=== PATIENT | male | born 1975 | race Caucasian/White ===

== ENCOUNTER 2017-01-17 05:51 | Emergency (ER) | payer MEDICARE, MEDICAID ==
[~2017-01-17] VITALS: Ht 182.9 cm; Wt 125.2 kg
--- NOTE | 2017-01-17 06:01 | Emergency Room Report ---
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 N Clinical Suspician of Infection? N Mental Status: 1 - Regular (Normal Baseline) Sepsis Risk:Possible Sepsis Risk Have you (or family members/close friends) recently traveled outside the [place]? N If Yes, where/when: Have you had exposure to infectious disease within the past month? N TB? Other? Specify: Source patient, RN notes reviewed, EMS, old records Exam Limitations no limitations Comment pt with hx of esrd on dialysis which is today but pt woke up this am with sob w/ o chest pain- he denied any prev chf -pt has been on dialysis for 10 yrs and is not a diabetic pt - no fever or cough Cardiac Chest Pain Chest pain indicative of cardiac No Timing/Duration this morning Severity moderate ALLERGIES Coded Allergies: No Known Allergies (01/17/17) History Medical History General CAD? No Angina: No [place]: No Hypertension? Yes Hyperlipidemia? No CHF? No DVT? No PE? No COPD? No Asthma? No Anemia? No GERD? No Gastric ulcers? No GI Bleed? No Hernia? No Thyroid Problems? No Hypothyroidism? No CVA? No Seizures? No Diabetes? No Renal Insuffiency? Yes End Stage Renal Disease? Yes UTI? No Stones? No BPH? No GB Disease: No Nephritic Syndrome? No Asplenia? No Hepatitis? No Sickle Cell Disease? No Arthritis? No Migraines? No Cataracts? No Glaucoma? No MRSA? No HIV? No TB? No Anxiety? No Depression? No Cancer? No More? No Immunization Hx Ped.Immunizations UTD No DT/Tetanus 1-4 Years Ago Surgical Hx Previous Surgery?N Social History Smoking Hx Smoker: Never Smoker Tobacco: No Are you/the child exposed to second-hand smoke: No Alcohol Alcohol: No Drugs none Review of Systems All Other Systems Reviewed and Negative Constitutional see HPI, denies fever, other Eyes denies drainage ENT denies: ear pain, epistaxis, throat pain. Respiratory see HPI, denies cough, shortness of breath, denies wheezing Cardiovascular denies chest pain, denies palpitations Gastrointestinal denies abdominal pain, denies diarrhea, denies vomiting Genitourinary denies: dysuria, frequency, hesitancy, hematuria. Musculoskeletal denies back pain, denies joint pain, denies joint swelling, denies neck pain Skin denies rash Psychiatric/Neurological denies headache, denies seizure Physical Exam Vital Signs Vital Signs Date Time Temp Pulse Resp B/P Pulse O2 O2 Flow FiO2 Ox Delivery Rate 01/17 727 99.1 98 20 141/87 97 2 01/17 0726 89 24 141/87 95 2 01/17 0659 91 24 156/79 95 2 01/17 0553 98.2 91 24 150/88 95 2 - WBC >12,000 or <4,000 or 10% bands? 2 or more SIRS Criteria Met? B/P:141/87 MAP:108 Creatinine >2.0? UA output<0.5ml/kg/hr for 2 hrs? Platelet count >100,000? Lactate >2.0mmol/1? INR >1.2 or PTT > than 60 sec? Evidence of Organ Dysfunction? Provider documented clinical suspician of infection? N Sepsis Criteria Count: 2 Sepsis Risk: Possible Sepsis Risk General Appearance no apparent distress Eye Exam - bilateral eye PERRL, bilateral eye EOMI Ear, Nose, Throat normal ENT inspection Neck non-tender Respiratory Status No: respiratory distress. Lung Sounds bilateral: decreased breath sounds, crackles. 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 No Results/Orders Laboratory Tests 01/17/17 0645: B-Natriuretic Peptide 1270 H 01/17/17 0625: Sodium 137, Potassium 5.2 H, Chloride 99, Carbon Dioxide 23, BUN 77 H, Creatinine 9.3 H, Estimated Creat Clear 19 L, Estimated GFR (MDRD) 6, Glucose 116 H, Calcium 9.2, Total Bilirubin 0.5, AST 37, ALT 16, Alkaline Phosphatase 596 H, Creatine Kinase 121, CK-MB (CK-2) Rel Index 0.6, CK and CKMB Interp 0.7, Troponin I < 0.02, Total Protein 6.9, Albumin 2.8 L, Globulin 4.1 H, Albumin/ Globulin Ratio 0.7 L, WBC 7.9, RBC 2.77 L, Hgb 9.0 L, Hct 27.8 L, MCV 100.4 H, RDW 16.9, Plt Count 160, MPV 6.1 L, Gran % 78.8, Gran # 6.2, Lymphocytes % 14.5, Monocytes % 3.1, Eosinophils % 3.2, Basophils % 0.3, Lymphocytes # 1.2, Monocytes # 0.2, Eosinophils # 0.3, Basophils # 0.0, PUBS MCHC 32.4, MCH 32.5 H Current Medication Orders Sig/Carmen Start time Last Medication Dose Route Stop Time Status Admin Furosemide 0 .STK-MED ONE 01/17 717 DC .ROUTE Nitroglycerin 0 .STK-MED ONE 01/17 717 DC .ROUTE Furosemide 80 MG ONCE ONE 01/17 700 DC 01/17 IV 01/17 701 07 Nitroglycerin 1 IN ONCE ONE 01/17 700 DC 01/17 TP 01/17 701 07 Sodium Chloride 10 ML PRN PRN 01/17 615 AC IV 01/18 602 Orders Procedure Date/time Status BRAIN NATRIURETIC PEPTIDE 01/18 716 Complete ELECTROCARDIOGRAM REQUEST 01/17 602 Active IV SALINE LOCK 01/17 602 Active COMPLETE METABOLIC PANEL 01/17 602 Complete CBC WITH AUTO DIFF 01/17 602 Complete CARDIAC ENZYMES 01/17 602 Complete 12 LEAD EKG-JAYDEN (INITIAL) 01/17 600 Active CM/EKG 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 of ischemic chgs XRAY/CT/US XRAY/CT/US XRAY chest XR interpretation by reviewed by me Xray Results abnormal (chf) Departure Departure Time of Disposition 0751 Disposition DC/XFER from ER to [facility] Clinical Impression Primary Impression: CHF (congestive heart failure) Qualifiers: Congestive heart failure type: unspecified congestive heart failure type Congestive heart failure chronicity: acute Qualified Code: I50.9 - Heart failure, unspecified Secondary Impressions: ESRD (end stage renal disease) on dialysis Condition STABLE Additional Instructions discussed with ed for transfer ED Critical Care Critical Care Yes Time spent 30-74 min Vital system(s) involved: Renal Failure I was present at bedside for Coordinating pt's care, Interpreting EKGs/Strips , Reviewing lab results, Reviewing old records, Discussing pt condition, For re- examinations, Examining radiographs at 2493
[2017-01-17 06:38] LABS: LYMPH # 1.2 K/mm3 (0.7-4.5); LYMPH % 14.5 % (10-50)
[2017-01-17 07:09] LABS: BUN 77 mg/dL (7-18); GFR (ESTIMATED) 6 ML/MIN (>60)
--- NOTE | 2017-01-17 07:27 | RADIOLOGY REPORT PS360 ---
CHEST-PORTABLE HISTORY: Extreme shortness of breath sob ORDERING PHYSICIAN: Porsha Chaidez MD PATIENT AGE: 41 years COMPARISON: None available FINDINGS: There is diffuse bilateral alveolar opacification along with cardiomegaly and pulmonary venous congestion. This radiographically is more consistent with CHF with pulmonary edema. Acute cardiac compensation is a consideration. Diffuse pneumonia is also considered. IMPRESSION: Diffuse bilateral alveolar disease with cardiomegaly suggesting CHF with pulmonary edema versus diffuse pneumonia
[2017-01-17 08:30] VITALS: BP 143/86
== END 2017-01-17 08:48 | disposition short-term general hospital (02) ==
LOC: ER 05:51
PROVIDERS: Emergency Medicine
DX: I50.9 Heart failure, unspecified (principal); I10 Essential (primary) hypertension; N18.6 End stage renal disease; Z99.2 Dependence on renal dialysis

== ENCOUNTER 2017-10-16 09:18 | Emergency (ER) | payer MEDICARE, MEDICAID ==
[~2017-10-16] VITALS: Ht 182.9 cm; Wt 136.1 kg
[2017-10-16 09:48] LABS: URINE BILIRUBIN - DIPSTICK NEGATIVE (NEG); URINE BLOOD 3+ (NEG)
[2017-10-16 10:14] LABS: LYMPH # 4.2 K/mm3 (0.7-4.5); LYMPH % 32.5 % (10-50)
[2017-10-16 10:19] LABS: HEMOGLOBIN 10.3 g/dL (14.1-18.0)
[2017-10-16 10:24] LABS: ARTERIAL ABE -8.7 MMOL/L (-2.4-+2.3); ARTERIAL PO2 136.2 MMHG (80-100); ARTERIAL TCO2 22.2 MMOL/L (23-27); OXYGEN 100; VENT RATE 20
[2017-10-16 10:27] LABS: URINE SQUAMOUS CELLS OCC #/hpf (OCC)
[2017-10-16 10:34] LABS: BUN 70 mg/dL (7-18)
--- OUTSIDE RECORDS SUMMARY | 2017-10-16 10:36 | External Medical Summary Rpt | CCD ---
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 [facility], [facility] 2 2 [facility], [facility] 2 2 [facility], [facility] 2 2 [facility], [facility] 2 2 [facility], [facility] 2 2 [facility], [facility] 2 2 [facility], [facility] 1 1 [facility] 1 1 [facility] 1 1 [facility], [facility] 1 1 [facility] 1 1 [facility] 1 1 [facility], [facility] 1 1 [facility] 1 1 [facility] 1 1 [facility] 1 1 [facility] 1 1 [facility] 1 1 [facility] 0 0 [facility] 0 0 [facility], [facility] 0 0 [facility] 0 0 [facility] 0 0 [facility], [facility] 0 0 [facility] 0 0 [facility] 0 0 [facility] 0 0 [facility] - 0 0 [facility], [facility] 0 0 [facility], [facility] 0 0 [facility], [facility] 0 0 N [facility], [facility] 9 9 N [facility], [facility] 9 9 N [facility], [facility] 9 9 N [facility], [facility] 9 9 N [facility], [facility] 9 9 N [facility], [facility] 9 9 N [facility], [facility] 9 9 N [facility], [facility] 9 9 N [facility] CL[facility], [facility] 9 9 N [facility] 9 9 N [facility] [address] CLINIC, [facility] 9 9 N [facility] [address] [facility] 9 9 [facility] CLINIC[facility] 9 9 N [facility] 8 8 [facility], [facility] 8 8 N [facility], [facility] 8 8 [facility] 8 8 N [facility], [facility] 8 8 [facility] 8 8 [facility] 8 8 N [facility] [address] CLINIC, [place] [id number] 8 N [facility], [place] [address] 8 N [facility], [place] [address] 8 N [facility] [address] CLINIC, [place] [address] 8 N [facility], [place] [address] 8 N [facility] [address] CLINIC, [place] [address] 8 N [facility] [address] CLINIC, [place] [address] 8 N [facility], [place] [address] 8 N [facility]
--- OUTSIDE RECORDS SUMMARY | 2017-10-16 10:36 | External Medical Summary Rpt | CCD ---
Author Author , NANNETTE Organization NANNETTE Address Unknown Phone [email or web address] Care Team Providers Care Turning Sander Operator Name Role Phone MELISSA DEANDRE, MELISSA Unavailable Unavailable Meeta BERNSTEIN, Unavailable Unavailable Meeta MIRANDA [facility] Unavailable Unavailable [facility], [facility] Unavailable Unavailable HOSPITAL, [facility] Unavailable Unavailable DIALYSIS, [facility] Unavailable Unavailable [facility] [place], [facility] [place] [facility], Unavailable Unavailable [facility], [facility] Unavailable Unavailable [id number], Unavailable Unavailable [id number]available Unavailable SERVICES, [facility] Unavailable Unavailable SERVICES, [facility] Unavailable Unavailable TRANSPORTATION SER, [facility] Unavailable Unavailable HOSPITAL, [facility] Unavailable Unavailable HOSPITA, [facility] Unavailable Unavailable CLINIC, [facility] SONDRA ODONNELL, Unavailable Unavailable SONDRA ODONNELL [facility] Unavailable Unavailable AIDS, [facility] Unavailable Un[facility], [facility] Unavailable Unavailable [facility], [facility] Unavailable Unavailable MEDICAL G, [facility] MED[facility] G [facility], Unavailable Unavailable [facility] Unavailable Un[facility], [facility] Unavailable Unavailable [facility], [facility], Unavailable Unavailable PLLC, [facility], [facility] LELO ZAVALA, LUCAS, Unavailable Unavailable [facility] Unavailable [facility], [facility], SCIFRES Unavailable Unavailable ANG [facility] Unavailable Unavailable E[facility]IP[facility], [facility], [facility] Unavailable Unavailable [facility]GENC[facility] SERV[facility], [facility], [facility]available [facility]available [facility], Unavailable Unavailable [facility] Unavailable Unavailable [facility], [facility]available Unavailable [facility] SWINEY PAT, SWINEY Unavailable Unavailable PAT [facility], Unavailable Unavailable [facility] Unavailable Unavailable ASSOCIATES, [facility] Unavailable Un[facility] [place] [facility], [facility] Unavailable Unavailable #493, [facility] # Unavailable Unavailable [id number], [facility] # [id number] [facility], Unavailable Unavailable [facility], Unavailable Unavailable [facility] Purpose Continuity of Care Document - 11-14-2007 through 2016 Problems Code Diagnosis DOS Provider Status R69 ILLNESS 07-13-2017 [facility] UNSPECIFIED TRANSPORTAT ION SER D509 IRON 06-15-2017 [facility] ANEMIA DIALYSIS UNSPECIFIED D631 ANEMIA IN 06-15-2017 [facility] DISEASE N186 END STAGE 06-15-2017 [facility] DISEASE DIALYSIS 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 HOSPI E875 HYPERKALEMI 01-18-2017 [facility] E8770 FLUID 01-18-2017 [facility] OVERLOAD [facility] UNSPECIFIED HOSPI I10 ESSENTIAL 01-18-2017 [facility] HYPERTENSIO FOUNDATION N I120 HYPERTENSIV 01-18-2017 [facility] E CKD [facility] W/STAGE 5 HOSPI CKD OR ESRD I348 OTHER 01-18-2017 [facility] NONRHEUMATI SERV C MITRAL [facility]OUNDATION VALVE DISORDERS I358 OTHER 01-18-2017 [facility] NONRHEUMATI SERV C AORTIC FOUNDATION VALVE DISORDERS I517 CARDIOMEGAL 01-18-2017 [facility] Y SERV [facility] J811 CHRONIC 01-18-2017 [facility] PULMONARY SERV EDEMA FOUNDATION N250 RENAL 01-18-2017 [facility] R0689 OTHER 01-18-2017 [facility] ES OF HOSPI BREATHING J81.1 Chronic 01-17-2017 pulmonary edema I110 HYPERTENSIV 01-17-2017 [facility], DISEASE PLLC WITH HEART FAILURE I509 HEART 01-17-2017 [facility] FAILURE PHYSICIANS, UNSPECIFIED PLLC J810 ACUTE 01-17-2017 [facility] PULMONARY SERV EDEMA [facility]OUND[facility] R0602 SHORTNESS 01-17-2017 [facility] MEDICAL IMAGING ASS R918 OTHER 01-17-2017 [facility] NONSPECIFIC SERV ABNORMAL FOUNDATION FINDING OF LUNG FIELD B954 OTHER 01-12-2017 HEATH STREPTOCOCC [facility] US CAUSE OF DIALYSIS DZ CLASSIFIED ELSW B9689 OTH SPEC 01-12-2017 HEATH BACTERIAL [facility] AGNT CAUSE DIALYSIS DZ CLASSIFIED ELSW G56803 CELLULITIS 01-12-2017 [facility] UMBILICUS DIALYSIS Z5181 ENCOUNTER 12-15-2016 [facility] THERAPEUTIC DIALYSIS DRUG LEVEL MONITORING R1905 PERIUMBILIC 12-11-2016 [facility] RENAL CARE MASS OR PSC LUMP L0291 CUTANEOUS 12-10-2016 [place] [facility] INPATIENT UNSPECIFIED MEDICINE B07793 CELLULITIS 12-10-2016 [facility] ABDOMINAL MEDICINE WALL A419 SEPSIS 12-09-2016 [facility] ORGANISM D696 THROMBOCYTO 12-09-2016 [facility] UNSPECIFIED E785 HYPERLIPIDE 12-09-2016 [facility] UNSPECIFIED E871 HYPO-OSMOLA 12-09-2016 [facility] HYPONATRE[facility] A R509 FEVER 12-09-2016 [facility] U[facility]PEC[facility] N EMERGENCY SERVI [id number] STENOSIS 12-09-2016 [facility] [place] VASC PROSTH RADIOLOGY DEVC IMPL & GRAFT INIT ENC D649 ANEMIA 12-02-2016 [facility] UNSPECIFIED FAMILY PHYSICIANS [facility] E213 HYPERPARATH 12-02-2016 [facility] YROIDISM FAMILY UNSPECIFIED PHYSICIANS [facility] M6281 MUSCLE 12-02-2016 [facility] WEAKNESS FAMILY GENERALIZED PHYSICIANS [facility] W63408 PAIN IN 12-02-2016 [facility] RIGHT LEG FAMILY PHYSICIANS [facility] A29151 PAIN IN 12-02-2016 [facility] LEFT LEG FAMILY PHYSICIANS [facility] [id number] PAIN D/T 11-23-2016 [facility] PROS [facility] IMPL & GRAFTS SEQUELA L299 PRURITUS 11-17-2016 [place] UNSPECIFIED [facility] DIALYSIS L989 DISORDER 11-17-2016 [place] THE SKIN & [facility] D[facility] S TISSUE UNS Z452 ENCOUNTER 10-05-2016 [facility] [place] ADJUSTMENT& RADIOLOGY MGMT VASCULAR ACCESS DEVICE G2581 RESTLESS 10-04-2016 [facility] LEGS [facility] SYNDROME M1990 UNSPECIFIED 10-04-2016 [facility] OSTEOARTHRI TIS UNSPECIFIED SITE N65264M THROMBOSIS 10-04-2016 [facility] D[facility] DEVC IMPL & GFT INITIAL H90936S THROMBOSIS 10-04-2016 [facility] [place] D/T OTH RADIOLOGY INTRL PRS DVC IMPL & GRFT INT E119 TYPE 2 09-09-2016 [facility] DIABETES [facility] MELLITUS WITHOUT COMPLICATIO NS K219 GASTRO-ESOP 09-09-2016 [facility] REFLUX [facility] DISEASE WITHOUT ESOPHAGITIS J0190 ACUTE 07-19-2016 [facility] SINUSITIS FAMILY UNSPECIFIED PHYSICIANS [facility] Z23 ENCOUNTER 07-16-2016 [place] FOR COUNTY IMMUNIZATIO DIALYSIS N Z4802 ENCOUNTER 06-20-2016 [facility] FOR REMOVAL FAMILY OF SUTURES PHYSICIANS [facility] H1033 UNSPECIFIED 06-13-2016 [facility] ACUTE FAMILY CONJUNCTIVI PHYSICIANS TIS [facility] BILATERAL C45230 PAIN IN 05-20-2016 [facility] RIGHT KNEE FAMILY PHYSICIANS [facility] H94831 PAIN IN 05-20-2016 [facility] LEFT KNEE FAMILY PHYSICIANS [facility] N529 MALE 05-20-2016 [facility]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 DYSFUNCTION PHYSICIANS [facility] UNSPECIFIED R262 DIFFICULTY 05-20-2016 [facility] IN WALKING FAMILY NOT PHYSICIANS ELSEWHERE [facility] CLASSIFIED 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 UNSPECIFIED K90953 PAIN IN 04-14-2016 [place] LEFT FAMILY SHOULDER PHYSICIANS [facility] U29547P OTH SPEC 04-14-2016 [facility] IMPL GFT INIT ENC H4954DG HEMORRHAGE 04-14-2016 [facility] D/T PROS N EMERGENCY DEV IMPL PHYS & GFT INITIAL B379 CANDIDIASIS 04-06-2016 [facility] UNSPECIFIED PHYSICIANS [facility] R55 SYNCOPE AND 04-06-2016 [facility] COLLAPSE FAMILY PHYSICIANS [facility] 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 POLYCYSTIC 01-27-2016 [facility] 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 ADULT TYPE PHYSICIANS [facility] I41065 PAIN IN 11-20-2015 [facility] UNSPECIFIED HOME LIMB MEDICAL EQUIPME R2689 OTHER 11-20-2015 [facility] ABNORMALITI HOME ES OF GAIT MEDICAL AND EQUIPME MOBILITY 91404 08-11-2015 [facility] TRAN[facility]ORT[facility] ION SER 5856 END STAGE 08-10-2015 [facility] RENAL RENAL CARE DISEASE PSC 2809 UNSPECIFIED 07-16-2015 HEATH IRON [facility] DEFICIENCY DIALYSIS ANEMIA 81731 ANEMIA IN 07-16-2015 [facility] KIDNEY DIALYSIS DISEASE 77741 SECONDARY 07-16-2015 HEATH HYPERPARATH [facility] YROIDISM DIALYSIS V0481 NEED 07-16-2015 HEATH PROPHYLACTI [facility] C DIALYSIS VACCINATION &INOCULATIO N FLU V4511 RENAL 07-16-2015 [facility] STATUS DIALYSIS 21155 PAIN IN 07-08-2015 [facility] [place] JOINT, RADIOLOGY LOWER LEG V700 ROUTINE 07-08-2015 [facility] EXAM@HEALTH CARE FACL 2767 HYPERPOTASS 03-26-2015 [facility]IA RENAL CARE PSC 4011 ESSENTIAL 03-26-2015 [facility] HYPERT[facility]SIO RENAL CARE N, BENIGN PSC 5854 CHRONIC 03-26-2015 [facility] DISEASE STAGE IV (SEVERE) 10911 FEVER 03-26-2015 [facility] UNSPECIFIED MEDICS 34062 SHORTNESS 03-26-2015 [facility] OF BREATH MEDICS 66309 ABDOMINAL/P 03-26-2015 [facility] SWELLING MASS/LUMP UNSPEC SITE 7907 BACTEREMIA 03-26-2015 [facility] RENAL CARE PSC 48460 HTN CKD 03-25-2015 [facility] UNSPEC COMMUNTIY W/CKD STAGE HOSPITA V/ESRD 5839 NEPHRITIS&N 03-25-2015 [facility] EPHRPATH COMMUNTIY NOT AC/CHRN HOSPITA W/UNS PATHAL LES 5880 RENAL 03-25-2015 [facility] OSTEODYSTRO COMMUNTIY PHY HOSPITA 16293 OTHER 03-25-2015 [facility] [place] NONSPECIFIC RADIOLOGY ABNORMAL FINDING OF LUNG FIELD 22488 BLOODSTREAM 03-25-2015 [facility] INFECT D/T COMMUNTIY [facility] VENOUS CATHETER V8541 BODY MASS 03-25-2015 [facility] INDEX COMMUNTIY 40.0-44.9 HOSPITA ADULT 79488 OTHER 03-14-2015 [facility] STAPHYLOCOC [facility] CUS DIALYSIS INFECTION IN CCE & UNS SITE 71443 OTH COMPS 02-12-2015 [place] DUE RENAL [facility] DIALYSIS DIALYSIS DEVICE IMPLANT&GFT V5883 ENCOUNTER 02-12-2015 [place] FOR [facility] THERAPEUTIC DIALYSIS DRUG MONITORING V7283 OTHER 01-26-2015 [facility] SPECIFIED COMMUNTIY PRE-OPERATI HOSPITA VE EXAMINATION 99401 OTHER FLUID 11-14-2014 [facility] OVERLOAD MEDICS V5881 FITTING AND 11-14-2014 [facility] [place] ADJUSTMENT RADIOLOGY OF VASCULAR CATHETER 2720 PURE 08-31-2014 HEATH HYPERCHOLES [facility] 4019 UNSPECIFIED 08-31-2014 HEATH ESSENTIAL [facility] 6822 CELLULITIS 08-31-2014 [facility] V5869 LONG-TERM 08-31-2014 HEATH (CURRENT) [facility] USE OF HOSPITAL OTHER MEDICATIONS 5859 CHRONIC 07-17-2014 [facility] [place] KIDNEY RADIOLOGY DISEASE UNSPECIFIED 8830 OPEN WOUND 03-02-2014 [facility] PAT FINGER WITHOUT MENTION COMPLICATIO N E9208 ACC CAUSED 03-02-2014 [facility] PAT OTH SPEC CUT&PIERCIN G INSTRUM/OBJ S 37096 MORBID 12-04-2013 [facility] 06582 PHLEBITIS&T 12-04-2013 [facility] SUP VEINS UPPER EXTREM 79497 ESOPHAGEAL 12-04-2013 [facility] REFLUX [facility] 7822 LOCALIZED 12-04-2013 [facility] MED[facility] G MASS OR LUMP V8542 BODY MASS 12-04-2013 [facility] 45.0-49.9 ADULT 586 UNSPECIFIED 11-14-2013 MELISSA DEANDRE RENAL FAILURE 9961 MECH COMP 07-27-2013 [facility] VASCULAR DEVICE IMPLANT&GRA FT 2753 DISORDERS 07-16-2013 [facility] PHOSPHORUS DIALYSIS METABOLISM 38068 HYPERCALCEM 05-14-2013 [facility] DIALYSIS 4470 ARTERIOVENO 06-18-2012 [facility] US FISTULA, HOSPITAL ACQUIRED 4539 EMBOLISM 06-18-2012 [facility] THROMBOSIS OF UNSPECIFIED SITE V720 EXAMINATION 12-27-2011 [facility] OF EYES AND VISION 27620 OTHER 07-16-2011 [facility] DIALYS[facility] METABOLISM V053 NEED PROPH 07-16-2011 HEATH VACC&INOCUL [facility] AT AGAINST DIALYSIS VIRAL HEP 2724 OTHER AND 04-28-2011 [facility] UNSPECIFIED LABORATORY SERVICES HYPERLIPIDE AMENA 4149 UNSPECIFIED 04-28-2011 [facility] CHRONIC LABORATORY ISCHEMIC SERVICES HEART DISEASE V0382 NEED PROPH 10-15-2010 HEATH VACCINATION [facility] AGAINST DIALYSIS STREP PNEUMONE 43452 ANEMIA OF 02-01-2010 [facility] OTHER LABORATORY CHRONIC SERVICES DISEASE 71945 HTN CKD UNS 02-01-2010 [facility] W/CKD [facility] STAGE I THRU STAGE IV/UNS V741 SCREENING 12-16-2009 [facility] EXAMINATION DIALYSIS FOR CLINIC PULMONARY TUBERCULOSI S 0389 UNSPECIFIED 12-04-2008 [facility]OSPITAL 10354 SEPSIS 12-04-2008 [facility] 53198 INF&INFLAM 12-04-2008 [facility] [place] REACT DUE RADIOLOGY OT VASC DEVICE IMPLANT&GFT 6869 UNSPEC 12-01-2008 [facility] INFECTION ERVICAviary SKIN&SUBCUT ANEOUS TISSUE 27192 OTHER 12-01-2008 [facility] SYMPTOMS [employer] 87625 URINARY 11-19-2008 [facility] 2811 OTHER 09-29-2008 [facility] VITAMIN B12 LABORATORYS DEFICIENCY [employer] ANEMIA 2812 FOLATE-DEFI 09-29-2008 [facility]IA [facility] 5733 UNSPECIFIED 08-27-2008 [employer] [facility] HEPATITIS [facility] 4619 ACUTE 07-15-2008 [facility] SINUSITIS, MEDICAL UNSPECIFIED CLINIC 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 V561 FITTING&ADJ 05-13-2008 [facility] EXTRACORPOR CLINIC EAL DIALYSIS CATHETER 7840 HEADACHE 04-04-2008 [facility] [place] RADIOLOG[facility] 21846 DEGEN 03-18-2008 [facility] [place] LUMBAR/LUMB RADIOLOGY OSACRAL INTERVERTEB RAL DISC 7242 LUMBAGO 03-18-2008 [facility] 7245 UNSPECIFIED 03-18-2008 [facility] 08759 GOUTY 01-12-2008 [facility] NEPHROPATHY DIALYSIS , CLINIC UNSPECIFIED 2749 GOUT, 01-10-2008 [facility] UNSPECIFIED HOSPITAL V451 RENAL 01-10-2008 [facility] DIALYSIS HOSPITAL STATUS V7284 UNSPECIFIED 01-10-2008 [facility] PRE-OPERATI OF VE [place] EXAMINATION V854 BODY MASS 01-10-2008 [facility] INDEX 40 HOSPITAL AND OVER ADULT 82224 CHR 12-20-2007 LELO ZAVALA GLOMERULONE PHRITIS W/PATH KIDNEY LES DZ CE [...] Bacteria XXX Anaerobe+Aerobe Cult (01-17-2017 18:49) Bacteri 1208832 complet a XXX 017 06 No ed Anaerob 18:49 growth e+Aerob (qualif e Cult ier value) SCT NGB6 NO GROWTH DAY 5. L Bacteria XXX Anaerobe+Aerobe Cult (01-17-2017 13:34) Bacteri 1998283 complet a XXX 017 06 No ed Anaerob 13:34 growth e+Aerob (qualif e Cult ier value) SCT NGB6 NO GROWTH DAY 5. L Magnesium SerPl-mCnc (01-17-2017 10:52) Magnesi 2.0 1.9-2.4 complet um 017 mg/dL ed SerPl-m 10:52 C[facility] Phosphate SerPl-mCnc (01-17-2017 10:52) Phospha 6.7 2.5-4.5 complet te 017 mg/dL ed SerPl-m 10:52 Cnc NT-proBNP SerPl-mCnc (01-17-2017 10:52) NT-proB 31402 0-449 complet RN L AND D 017 pg/mL ed SerPl-m 10:52 Cnc Procedures Procedure DOS Code Location Performer Comment PERFORMAN [id number] [address] URINARY FILTRATIO N SINGLE HEMODIALY [address] [facility] SIS 5 N N COMMUNTIY COMMUNTIY HOSPITA HOSPITA INCI [address] [facility] W/REMOVAL 5 N N COMMUNTIY COMMUNTIY FB/DEVICE HOSPITA HOSPITA FROM SKIN & SUBQ TISSUE Encounters Encounter Start End Date Code Location Performer Type Date CLINIC, [place] [address] [facility], [place] [address] [facility], [place] [address] [facility], [place] [address] [facility] [place] [address] [facility] [address] CLINIC, [place] [address] [facility], [address] INPATIENT CLINIC, [place] [address] [facility], [address] DIALYSIS H[facility] [address], [address] DIALYSIS [facility] [address] CLINIC, [facility] 6 6 [facility], [facility] 6 6 [facility], [facility] 6 6 [facility] 6 6 [facility]IN[facility], [facility] 6 6 [facility], [facility] 6 6 [facility] - 6 6 [facility] HEATH - 6 6 [facility] CLIN[facility], [facility] 6 6 [facility], [facility] 6 6 [facility], [facility] 6 6 [facility], [facility] 6 6 [facility], [facility] 6 6 [facility], [facility] 5 5 [facility], [facility] 5 5 [facility], [facility] 5 5 [facility], [facility] 5 5 [facility] [place] [address] [facility], [facility] 5 5 [facility], [facility] 5 5 [facility], [facility] 5 5 [facility] [place] [address] 5 N INPATIENT [facility] CL[facility], [facility] 5 5 [facility], [facility] 5 5 [facility] [place] [address] 5 N [facility], [facility] 5 5 [facility], [facility] 5 5 [facility], [facility] 5 5 [facility], [facility] 4 4 [facility], [facility] 4 4 [facility] 4 4 [facility], [facility] 4 4 [facility], [facility] 4 4 [facility] [address], [facility] 4 4 [facility], [facility] 4 4 [facility], [facility] 4 4 [facility] 4 4 [facility] 4 4 [facility], [facility] 4 4 [facility], [facility] 4 4 [facility], [facility] 4 4 [facility] [address] CLINIC, [facility] 4 4 [facility] [address] CLINIC, [facility] 3 3 [facility] [address], [facility] 3 3 [facility], [facility] 3 3 [facility] 3 3 [facility], [facility] 3 3 [facility], [facility] 3 3 [facility], [facility] 3 3 [facility], [facility] 3 3 [facility], [facility] 3 3 [facility], [facility] 3 3 [facility] 3 3 [facility] 3 3 [facility] 3 3 [facility], [facility] 2 2 [facility], [facility] 2 2 [facility] 2 2 [facility] 2 2 [facility] 2 2 [facility] 2 2 [facility] 2 2 [facility] 2 2 [facility] 2 2 [facility] 2 2 [facility] 2 2 [facility] 2 2 [facility] 2 2 [facility] 1 1 [facility] 1 1 [facility] 1 1 [facility] 1 1 [facility] 1 1 [facility] 1 1 [facility] 1 1 [facility] 1 1 [facility] 1 1 [facility] 1 1 [facility] 1 1 [facility] 1 1 [facility] 0 0 [facility] 0 0 [facility] 0 0 [facility] 0 0 [facility] 0 0 [facility] 0 0 [facility] 0 0 [facility] 0 0 [facility] 0 0 [facility] 0 0 [facility] 0 0 [facility] 0 0 [facility] 0 0 N [facility], [facility] 9 9 N [facility], [facility] 9 9 N [facility], [facility] 9 9 N [facility], [facility] 9 9 N [facility], [facility] 9 9 N [facility], [facility] 9 9 N [facility], [facility] 9 9 N [facility] CLINIC, [facility] 9 [facility] CL[facility], [facility] 9 9 N [facility], [facility] 9 9 N [facility] [address] CLINIC, [facility] 9 9 N [facility] [address] [facility] 9 9 [facility] CLINIC, [facility] 9 9 N [facility] 8 8 [facility] CLINIC, [facility] 8 8 N [facility] CLINIC, [facility] 8 8 [place] [facility] 8 8 N [facility] CL[facility], [facility] 8 8 [place] [facility] 8 8 [place] [facility] 8 8 N [facility] [address] CLINIC, [place] [address] 8 N [facility] CLIN[facility], [place] [address] 8 N [facility]IN[facility], [place] [address] 8 N [facility] [address] CLINIC, [place] [address] 8 N [facility], [place] [address] 8 N [facility] [address] CLINIC, [place] [address] 8 N [facility] [address] CLINIC, [place] [address] 8 N [facility] CLINIC, [place] [address] 8 N [facility]
--- OUTSIDE RECORDS SUMMARY | 2017-10-16 10:37 | External Medical Summary Rpt | CCD ---
Author Author [employer] Organization [employer] Address Unknown Phone Unavailable Purpose Continuity of Care Document - through 2016
--- OUTSIDE RECORDS SUMMARY | 2017-10-16 10:37 | External Medical Summary Rpt | CCD ---
Demographics Preferred Language Syrian Marital Status Unknown Pentecostal Affiliation Unknown Race Unknown Ethnic Group Unknown Author Author , NANNETTE BRUNSON Address Unknown Phone Immunization No patient found.
--- OUTSIDE RECORDS SUMMARY | 2017-10-16 10:37 | External Medical Summary Rpt | CCD ---
Demographics Preferred Language Latvian Marital Status Unknown Amish Affiliation Unknown Race Unknown Ethnic Group Unknown Author Author , NANNETTE BRUNSON Address Unknown Phone Immunization No patient found.
--- OUTSIDE RECORDS SUMMARY | 2017-10-16 10:37 | External Medical Summary Rpt ---
Author Author NANNETTE Alli, [employer] Organization [employer] Address Unknown Phone Unavailable Results CBC W Auto Differential panel in Blood Observa Value Referen Units Interpr Notes Date tion ce etation Range Basophils 0 - 0.2 K/MM3 Normal No Oct 4 inform2016 [#/volume on in 10:00 AM ] in source Blood by data Automated count Basophils 0.1 - 2.0 % Normal No Oct 4 /100 inform2016 leukocyte on in 10:00 AM s in source Blood by data Automated count Eosinophi 0.0 - 0.4 K/mm3 High No Oct 16 ls 2016 [#/volume on in 10:00 AM ] in source Blood by data Automated count Eosinophi 0.1 - % Normal No Oct 4 ls/100 12.0 2016 leukocyte on in 10:00 AM s in source Blood by data Automated count Granulocy 1.3 - 8.0 K/mm3 Normal No Oct 4 kiran 2016 [#/volume on in 10:00 AM ] in source Blood by data Automated count Granulocy 37.0 - % Normal No Oct 16 kiran/100 80.0 2016 leukocyte on in 10:00 AM s in source Blood by data Automated count Hematocri 42.0 - % Low No Oct 16 t [Volume 52.0 2016 on in 10:00 AM Fraction] source of Blood data Hemoglobi 14.1 - g/dL Low No Oct 16 n 18.0 2016 [Mass/vol on in 10:00 AM ume] in source Blood data Lymphocyt 0.7 - 4.5 K/mm3 Normal No Oct 4 es inform2016 [#/volume on in 10:00 AM ] in source Unspecifi data ed specimen by Automated count Lymphocyt 10 - 50 % Normal No Oct 4 es 2016 [#/volume on in 10:00 AM ] in source Unspecifi data ed specimen by Automated count Erythrocy 27 - 31.2 pg High No Oct 4 te mean 2016 corpuscul on in 10:00 AM ar source hemoglobi data n [Entitic mass] Erythrocy 31.8 - g/dl Low No Oct 4 te mean 35.4 2016 corpuscul on in 10:00 AM ar source hemoglobi data n concentra tion [Mass/vol ume] by Automated count Erythrocy 82.2 - fl High No Dec 4 te mean 97.8 2016 corpuscul on in 10:00 AM ar volume source [Entitic data volume] by Automated count Monocytes 0.1 - 1.0 K/mm3 Normal No Oct 4 inform2016 [#/volume on in 10:00 AM ] in source Blood by data Automated count Monocytes 1.7 - 9.3 % Normal No Oct 4 /100 2016 leukocyte on in 10:00 AM s in source Blood by data Automated count Platelet 7.4 - fl Normal No Oct 4 mean 10.4 2016 volume on in 10:00 AM [Entitic source volume] data in Blood by Automated count Platelets 142 - 424 K/mm3 No No Oct 4 informati inform2016 [#/volume on in on in 10:00 AM ] in source source Blood data data Erythrocy 4.6 - 6.2 M/mm3 Low No Oct 4 kiran inform2016 [#/volume on in 10:00 AM ] in source Amniotic data fluid Erythrocy 11.5 - % Normal No Oct 4 te 17.5 2016 distribut on in 10:00 AM ion width source [Entitic data volume] by Automated count Leukocyte 4.8 - K/MM3 High No Dec 4 s 10.8 2016 [#/volume on in 10:00 AM ] in source Blood data Urinalysis dipstick W Reflex Microscopic panel in Urine Observa Value Referen Units Interpr Notes Date tion ce etation Range Appeara SL CLEAR No No No Oct 16 nce of CLOUDY informa informa informa 2016 Urine tion in tion in tion in source source source data data data Bilirub NEGATIV NEG No No No Oct 16 in E informa informa informa 2016 [Presen tion in tion in tion in ce] in source source source Urine data data data by Test strip Erythro 3+ NEG No Abnorma No Oct 16 cytes informa l informa 2016 [Presen tion in tion in ce] in source source Urine data data Color ALISE YELLOW No No No Oct 4 of informa informa informa 2017 Urine tion in tion in tion in source source source data data data Glucose NEG No High No Oct 4 [Mass/vol informati informati 2017 ume] in on in on in Urine by source source Test data data strip Ketones TRACE NEG mg/dL Abnorma No Oct 4 l informa 2017 [Presen tion in ce] in source Urine data by Automat ed test strip Mucus 2+ NEG No Abnorma No Oct 4 [Presen informa l informa 2016 ce] in tion in tion in Urine source source sedimen data data t by Light microsc opy Nitrite POSITIV NEG No Abnorma No Oct 16 E informa l informa 2016 [Presen tion in tion in ce] in source source Urine data data by Test strip pH of 5.0 - 8.5 No Normal No Oct 4 Urine informati informati 2017 on in on in source source data data Protein NEG mg/dL High No Oct 4 [Mass/vol informati 2016 ume] in on in Urine by source Automated data test strip Specific 1.005 - No Normal No Oct 4 gravity 1.030 informati informati 2017 of Urine on in on in source source data data Urobili 0.2 NEG E.U./dL No No Oct 4 nogen informa informa 2017 [Presen tion in tion in ce] in source source Urine data data by Test strip
[2017-10-16 10:39] LABS: GFR (ESTIMATED) 5 ML/MIN (>60)
--- NOTE | 2017-10-16 10:51 | Procedure Note ---
Bedside procedures Central Line Date of procedure: 10/16/17 Time of procedure: 929 Central Line Placement: Risks/benefits discussed with pt/guardian? No Anesthesia Lidocaine 1% ml- CL Placement [place], Lt subclavian, Prepped and draped, Triple lumen, good venous return, sutured, Sterile Dressing Applied. Complications none Additional information: Cold to the emergency department to place venous access in critically ill patient in respiratory distress. Patient was positioned in Trendelenburg position. LEFT neck and chest were prepped and draped in standard surgical fashion. 1 percent Xylocaine was infiltrated inferior to the LEFT clavicle. With several passes of the needle ultimately the apparent LEFT subclavian vein was cannulated in there was good return of venous blood. Guidewire was inserted. Small incision was made the insertion site. With some difficulty symptoms tissues were dilated. 7 Czech triple-lumen catheter was then inserted over the guidewire using Seldinger technique. There was good venous return and all ports flushed. Catheter was sewn in position and clean dry sterile dressing was applied. At the completion of the procedure however there was not adequate blood return from the red port. Chest x-ray was done. at 1050
--- NOTE | 2017-10-16 10:56 | RADIOLOGY REPORT PS360 ---
CHEST-PORTABLE#3 at 10:17 AM Ordering Physician: Porsha Chaidez MD Patient Age: 42 years: Male HISTORY: tube placement. TECHNIQUE: AP portable chest for ET tube tube placement COMPARISON :Chest films from earlier today FINDINGS This portable chest film includes the neck up to the level of the vocal cords. The tip of the endotracheal tube is just through the cords at the upper trachea. On this position was discussed with Dr. Chaidez and it should be advanced at least 6-7 cm for more optimal positioning. Please verify adequate breath sounds after repositioning tube. We again see the left subclavian central line with tip at the SVC just beyond brachiocephalic junction. No pneumothorax on left post line placement Extensive bilateral central infiltrates batwing distribution most likely reflects pulmonary edema pattern in this dialysis patient... Although diffuse alveolar pneumonia could yield a similar appearance.. Air bronchograms are seen throughout this infiltrate at perihilar regions bilaterally & most evident on left. No pleural effusions evident. Heart appears upper normal in size. Generous superior mediastinum likely reflects the AP and supine projection. Should be addressed on follow-up studies.. IMPRESSION: --------- 1. The ET tube is evident but quite high in position on this repeat CXR,. ET tube tip just inferior to the vocal cords. Findings were discussed with Dr. Chaidez in ER. ET tube will be advanced and repeat film performed. 2. left subclavian central line in place-satisfactory position. No pneumothorax 3. Prominent extensive, diffuse bilateral central infiltrates. Favor this central 'Batwing distribution' most likely reflects prominent pulmonary edema pattern.
--- NOTE | 2017-10-16 11:13 | RADIOLOGY REPORT PS360 ---
CHEST-PORTABLE 9:58 AM Ordering Physician: Porsha Chaidez MD Patient Age: 42 years: Male HISTORY: sob up respiratory distress. Evaluate for central line placement and ET tube placement. TECHNIQUE: AP portable supine chest COMPARISON :Chest film from earlier today at 6:10 AM FINDINGS Diffuse bilateral alveolar infiltrates most evident centrally. Central bat wing distribution with air bronchograms most evident centrally.- This pattern most likely does reflect a pulmonary edema pattern. Diffuse pneumonic infiltrate could yield similar pattern. Heart is upper normal in size. No pleural effusion evident A new central line is in place entering from the left subclavian with tip at SVC where it junctions with the brachiocephalic vein... No pneumothorax left lung remains fully expanded.. ET tube reportedly has been placed not evident and cannot be confirmed on this study. Repeat films will be performed to further evaluate.. There is a a line projected vertically over the left chest most likely skinfold line in that continues beyond the chest. . Again the repeat films would be helpful here as well. IMPRESSION: Extensive bilateral alveolar infiltrates,. Central batwing distribution favors pulmonary edema although. Diffuse pneumonia could yield similar pattern Central line in place entering from left. ET tube cannot be identified or confirmed on this study. Repeat pCXR pending
--- NOTE | 2017-10-16 11:14 | Emergency Room Report ---
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 N Clinical Suspician of Infection? N Mental Status: 1 - Regular (Normal Baseline) Sepsis Risk:Possible Sepsis Risk Have you (or family members/close friends) recently traveled outside the [place]? N If Yes, where/when: Have you had exposure to infectious disease within the past month? N TB? Other? Specify: Source patient, RN notes reviewed, EMS, old records Exam Limitations clinical condition Comment pt with acute resp failure sec to renal failure missed dialysis - unable to get hx from pt Cardiac Chest Pain Chest pain indicative of cardiac No Timing/Duration this morning Severity severe ALLERGIES Coded Allergies: No Known Allergies (01/17/17) History Medical History General CAD? No Angina: No TN: No Hypertension? Yes Hyperlipidemia? No CHF? No DVT? No PE? No COPD? No Asthma? No Anemia? No GERD? No Gastric ulcers? No GI Bleed? No Hernia? No Thyroid Problems? No Hypothyroidism? No CVA? No Seizures? No Diabetes? No Renal Insuffiency? Yes End Stage Renal Disease? Yes UTI? No Stones? No BPH? No GB Disease: No Nephritic Syndrome? No Asplenia? No Hepatitis? No Sickle Cell Disease? No Arthritis? No Migraines? No Cataracts? No Glaucoma? No MRSA? No HIV? No TB? No Anxiety? No Depression? No Cancer? No More? No Immunization Hx DT/Tetanus 1-4 Years Ago Surgical Hx Previous Surgery?N Social History Smoking Hx Smoker: Never Smoker Tobacco: No Alcohol Alcohol: No Drugs none Review of Systems All Other Systems Reviewed and Negative Comment unable to obtain sec to pt clinical failure Physical Exam Vital Signs Vital Signs Date Time Temp Pulse Resp B/P Pulse O2 O2 Flow FiO2 Ox Delivery Rate 10/16 1115 81 24 95/42 93 10/16 1050 84 24 110/61 94 10/16 1040 98.0 85 24 96/35 94 10/16 1024 92 24 89 - WBC >12,000 or <4,000 or 10% bands? 2 or more SIRS Criteria Met? B/P:95/42 MAP: Creatinine >2.0? UA output<0.5ml/kg/hr for 2 hrs? Platelet count >100,000? Lactate >2.0mmol/1? INR >1.2 or PTT > than 60 sec? Evidence of Organ Dysfunction? Provider documented clinical suspician of infection? N Sepsis Criteria Count: 2 Sepsis Risk: Possible Sepsis Risk General Appearance severe distress Eye Exam - bilateral eye PERRL, bilateral eye EOMI Ear, Nose, Throat normal ENT inspection Neck non-tender Respiratory Status Yes: respiratory distress. Lung Sounds bilateral: decreased breath sounds. Cardiovascular regular rate/rhythm, systolic murmur, gallop/S3 Peripheral Pulses Pulses normal Yes Gastrointestinal soft Extremities no calf tenderness, pedal edema Strength 4 Upper Ext (L), 4 Upper Ext (R), 4 Lower Ext (L), 4 Lower Ext (R) Neurologic no focal changes Reflexes Reflexes normal No Mental status altered mental status Skin intact Medical Decision Making LABS/Meds/Orders Pt receiving controlled substance in ED? No Results/Orders Laboratory Tests 10/16/17 1040: Lactic Acid 4.2 H 10/16/17 1015: ABG pH 7.14 *L, ABG pCO2 (Temp Corrct 60.8 H, ABG pO2 (Temp Correct 136.2 H, ABG HCO3 20.3 L, ABG Total CO2 22.2 L, ABG O2 Sat (Calculated) 97.8, ABG Base Excess -8.7 L, Sandro Test N/A, Vent Rate 20, Tidal Volume 500, POC PEEP 5, Blood Gas Comments LEFT RADIAL 10/16/17 1000: Sodium 138, Potassium 5.5 H, Chloride 100, Carbon Dioxide 19 L, BUN 70 H, Creatinine 11.8 H, Estimated Creat Clear 16 L, Estimated GFR (MDRD) 5, Glucose 228 H, Calcium 9.1, Total Bilirubin 0.3, AST 12 L, ALT 12, Alkaline Phosphatase 864 H, Creatine Kinase 46, CK-MB (CK-2) Rel Index 1.1, CK and CKMB Interp < 0.5, Troponin I < 0.02, B-Natriuretic Peptide 1980 H, Total Protein 7.2, Albumin 2.8 L, Globulin 4.4 H, Albumin/Globulin Ratio 0.6 L, WBC 12.9 H , RBC 3.27 L, Hgb 10.3 L, Hct 33.7 L, MCV 103.0 H, RDW 16.2, Plt Count 323, MPV 7.7, Gran % 60.9, Gran # 7.9, Lymphocytes % 32.5, Monocytes % 2.5, Eosinophils % 3.5, Basophils % 0.6, Lymphocytes # 4.2, Monocytes # 0.3, Eosinophils # 0.5 H, Basophils # 0.1, PUBS MCHC 30.4 L, MCH 31.3 H 10/16/17 0600: Urine Color ALISE, Urine Appearance SL CLOUDY, Urine pH 8.0, Ur Specific [place] 1.020, Urine Protein 3+ H, Urine Ketones TRACE H, Urine Blood 3+ H, Urine Nitrate POSITIVE H, Urine Bilirubin NEGATIVE, Urine Urobilinogen 0.2, Ur Leukocyte Esterase 2+ H, Urine RBC TNTC, Urine WBC 10-20, Ur Squamous Epith Cells OCC, Urine Bacteria 2+, Urine Glucose 1+ H Current Medication Orders Sig/Carmen Start time Last Medication Dose Route Stop Time Status Admin Acetaminophen 650 MG ONCE ONE 10/16 1100 DC 12 SD 10/16 1101 1017 Sodium Chloride 10 ML PRN PRN 10/16 1100 AC IV 10/17 1055 Ertapenem 1 GM ONCE ONE 10/16 1045 DC 10/16 Sodium Chloride 50 ML IV 10/16 1114 1035 Sodium Chloride 100 ML .STK-MED ONE 10/16 1031 DC IV Ertapenem 0 .STK-MED ONE 10/16 1030 DC .ROUTE Acetaminophen 0 .STK-MED ONE 10/16 1016 DC SD Sodium Bicarbonate 50 ML ONCE ONE 10/16 1000 DC IV 10/16 1001 Midazolam HCl 50 MG .Q1H 10/16 0945 CKDr Sodium Chloride 40 ML IV Propofol 100 ML .STK-MED ONE 10/16 0932 DC IV Orders Procedure Date/time Status CULTURE, URINE 10/16 UNK Active LACTIC ACID FOLLOW UP 10/16 1108 Active IV SALINE LOCK 10/16 1055 Active CHEST-PORTABLE 10/16 1051 Active ARTERIAL BLOOD GAS REQUEST 10/16 1012 Active ELECTROCARDIOGRAM REQUEST 10/16 0939 Active ARTERIAL BLOOD GAS REQUEST 10/16 0939 Active URINARY CATHETER INSERT 12/04 0939 Active CULTURE, BLOOD 10/16 939 Active URINALYSIS/COMPLETE 10/16 939 Complete LACTIC ACID 10/16 939 Complete COMPLETE METABOLIC PANEL 10/16 939 Complete CBC WITH AUTO DIFF 10/16 939 Complete CARDIAC ENZYMES 10/16 939 Complete BRAIN NATRIURETIC PEPTIDE 10/16 939 Complete CM/EKG CM/sleeve sewer Rhythm Atrial Fibrillation EKG non-spec. ST/Twave chgs XRAY/CT/US XRAY/CT/US XRAY chest XR interpretation by reviewed by me, discussed w/radiologist Xray Results abnormal (pul edema/iv line and et tube) Procedures Intubation Intubation Risks/benefits discussed with pt/guardian? No Time of Intubation 0927 Intubation Method orotracheal Tube Size (cm) 7.5 Medications Versed mg- Breath Sounds after Intubation: equal Intubation Complications no complications Post Intubation Xray Yes Departure Departure Time of Disposition 1123 Disposition DC/XFER from ER to [facility] Clinical Impression Primary Impression: Respiratory failure requiring intubation Secondary Impressions: ESRD (end stage renal disease) on dialysis Pulmonary edema Qualifiers: Chronicity: acute Qualified Code: J81.0 - Acute pulmonary edema Condition STABLE Additional Instructions discussed with dr garcia and will go to ed for eval Discharge Counseling Counseled pt/family regarding diagnosis, test results ED Critical Care Critical Care Yes Time spent > 164 min Vital system(s) involved: Respiratory Failure, Renal Failure I was present at bedside for Coordinating pt's care, Interpreting EKGs/Strips , Reviewing lab results, Reviewing old records, Discussing pt condition, Ventilator management, Examining radiographs Comments discussed with and and [facility] and [facility] - was able to take pt in ed at 1138
--- NOTE | 2017-10-16 11:14 | Emergency Room Report ---
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 N Clinical Suspician of Infection? N Mental Status: 1 - Regular (Normal Baseline) Sepsis Risk:Possible Sepsis Risk Have you (or family members/close friends) recently traveled outside the [place]? N If Yes, where/when: Have you had exposure to infectious disease within the past month? N TB? Other? Specify: Source patient, RN notes reviewed, EMS, old records Exam Limitations clinical condition Comment pt with acute resp failure sec to renal failure missed dialysis - unable to get hx from pt Cardiac Chest Pain Chest pain indicative of cardiac No Timing/Duration this morning Severity severe ALLERGIES Coded Allergies: No Known Allergies (01/17/17) History Medical History General CAD? No Angina: No VA: No Hypertension? Yes Hyperlipidemia? No CHF? No DVT? No PE? No COPD? No Asthma? No Anemia? No GERD? No Gastric ulcers? No GI Bleed? No Hernia? No Thyroid Problems? No Hypothyroidism? No CVA? No Seizures? No Diabetes? No Renal Insuffiency? Yes End Stage Renal Disease? Yes UTI? No Stones? No BPH? No GB Disease: No Nephritic Syndrome? No Asplenia? No Hepatitis? No Sickle Cell Disease? No Arthritis? No Migraines? No Cataracts? No Glaucoma? No MRSA? No HIV? No TB? No Anxiety? No Depression? No Cancer? No More? No Immunization Hx DT/Tetanus 1-4 Years Ago Surgical Hx Previous Surgery?N Social History Smoking Hx Smoker: Never Smoker Tobacco: No Alcohol Alcohol: No Drugs none Review of Systems All Other Systems Reviewed and Negative Comment unable to obtain sec to pt clinical failure Physical Exam Vital Signs Vital Signs Date Time Temp Pulse Resp B/P Pulse O2 O2 Flow FiO2 Ox Delivery Rate 10/16 1115 81 24 95/42 93 10/16 1050 84 24 110/61 94 10/16 1040 98.0 85 24 96/35 94 10/16 1024 92 24 89 - WBC >12,000 or <4,000 or 10% bands? 2 or more SIRS Criteria Met? B/P:95/42 MAP: Creatinine >2.0? UA output<0.5ml/kg/hr for 2 hrs? Platelet count >100,000? Lactate >2.0mmol/1? INR >1.2 or PTT > than 60 sec? Evidence of Organ Dysfunction? Provider documented clinical suspician of infection? N Sepsis Criteria Count: 2 Sepsis Risk: Possible Sepsis Risk General Appearance severe distress Eye Exam - bilateral eye PERRL, bilateral eye EOMI Ear, Nose, Throat normal ENT inspection Neck non-tender Respiratory Status Yes: respiratory distress. Lung Sounds bilateral: decreased breath sounds. Cardiovascular regular rate/rhythm, systolic murmur, gallop/S3 Peripheral Pulses Pulses normal Yes Gastrointestinal soft Extremities no calf tenderness, pedal edema Strength 4 Upper Ext (L), 4 Upper Ext (R), 4 Lower Ext (L), 4 Lower Ext (R) Neurologic no focal changes Reflexes Reflexes normal No Mental status altered mental status Skin intact Medical Decision Making LABS/Meds/Orders Pt receiving controlled substance in ED? No Results/Orders Laboratory Tests 10/16/17 1040: Lactic Acid 4.2 H 10/16/17 1015: ABG pH 7.14 *L, ABG pCO2 (Temp Corrct 60.8 H, ABG pO2 (Temp Correct 136.2 H, ABG HCO3 20.3 L, ABG Total CO2 22.2 L, ABG O2 Sat (Calculated) 97.8, ABG Base Excess -8.7 L, Sandro Test N/A, Vent Rate 20, Tidal Volume 500, POC PEEP 5, Blood Gas Comments LEFT RADIAL 10/16/17 1000: Sodium 138, Potassium 5.5 H, Chloride 100, Carbon Dioxide 19 L, BUN 70 H, Creatinine 11.8 H, Estimated Creat Clear 16 L, Estimated GFR (MDRD) 5, Glucose 228 H, Calcium 9.1, Total Bilirubin 0.3, AST 12 L, ALT 12, Alkaline Phosphatase 864 H, Creatine Kinase 46, CK-MB (CK-2) Rel Index 1.1, CK and CKMB Interp < 0.5, Troponin I < 0.02, B-Natriuretic Peptide 1980 H, Total Protein 7.2, Albumin 2.8 L, Globulin 4.4 H, Albumin/Globulin Ratio 0.6 L, WBC 12.9 H , RBC 3.27 L, Hgb 10.3 L, Hct 33.7 L, MCV 103.0 H, RDW 16.2, Plt Count 323, MPV 7.7, Gran % 60.9, Gran # 7.9, Lymphocytes % 32.5, Monocytes % 2.5, Eosinophils % 3.5, Basophils % 0.6, Lymphocytes # 4.2, Monocytes # 0.3, Eosinophils # 0.5 H, Basophils # 0.1, PUBS MCHC 30.4 L, MCH 31.3 H 10/16/17 0600: Urine Color ALISE, Urine Appearance SL CLOUDY, Urine pH 8.0, Ur Specific [place] 1.020, Urine Protein 3+ H, Urine Ketones TRACE H, Urine Blood 3+ H, Urine Nitrate POSITIVE H, Urine Bilirubin NEGATIVE, Urine Urobilinogen 0.2, Ur Leukocyte Esterase 2+ H, Urine RBC TNTC, Urine WBC 10-20, Ur Squamous Epith Cells OCC, Urine Bacteria 2+, Urine Glucose 1+ H Current Medication Orders Sig/Carmen Start time Last Medication Dose Route Stop Time Status Admin Acetaminophen 650 MG ONCE ONE 10/16 1100 DC 12 IL 10/16 1101 1017 Sodium Chloride 10 ML PRN PRN 10/16 1100 AC IV 10/17 1055 Ertapenem 1 GM ONCE ONE 10/16 1045 DC 10/16 Sodium Chloride 50 ML IV 10/16 1114 1035 Sodium Chloride 100 ML .STK-MED ONE 10/16 1031 DC IV Ertapenem 0 .STK-MED ONE 10/16 1030 DC .ROUTE Acetaminophen 0 .STK-MED ONE 10/16 1016 DC IL Sodium Bicarbonate 50 ML ONCE ONE 10/16 1000 DC IV 10/16 1001 Midazolam HCl 50 MG .Q1H 10/16 0945 CKDr Sodium Chloride 40 ML IV Propofol 100 ML .STK-MED ONE 10/16 0932 DC IV Orders Procedure Date/time Status CULTURE, URINE 10/16 UNK Active LACTIC ACID FOLLOW UP 10/16 1108 Active IV SALINE LOCK 10/16 1055 Active CHEST-PORTABLE 10/16 1051 Active ARTERIAL BLOOD GAS REQUEST 10/16 1012 Active ELECTROCARDIOGRAM REQUEST 10/16 0939 Active ARTERIAL BLOOD GAS REQUEST 10/16 0939 Active URINARY CATHETER INSERT 12/04 0939 Active CULTURE, BLOOD 10/16 939 Active URINALYSIS/COMPLETE 10/16 939 Complete LACTIC ACID 10/16 939 Complete COMPLETE METABOLIC PANEL 10/16 939 Complete CBC WITH AUTO DIFF 10/16 939 Complete CARDIAC ENZYMES 10/16 939 Complete BRAIN NATRIURETIC PEPTIDE 10/16 939 Complete CM/EKG CM/service correspondent Rhythm Atrial Fibrillation EKG non-spec. ST/Twave chgs XRAY/CT/US XRAY/CT/US XRAY chest XR interpretation by reviewed by me, discussed w/radiologist Xray Results abnormal (pul edema/iv line and et tube) Procedures Intubation Intubation Risks/benefits discussed with pt/guardian? No Time of Intubation 0927 Intubation Method orotracheal Tube Size (cm) 7.5 Medications Versed mg- Breath Sounds after Intubation: equal Intubation Complications no complications Post Intubation Xray Yes Departure Departure Time of Disposition 1123 Disposition DC/XFER from ER to [facility] Clinical Impression Primary Impression: Respiratory failure requiring intubation Secondary Impressions: ESRD (end stage renal disease) on dialysis Pulmonary edema Qualifiers: Chronicity: acute Qualified Code: J81.0 - Acute pulmonary edema Condition STABLE Additional Instructions discussed with dr garcia and will go to ed for eval Discharge Counseling Counseled pt/family regarding diagnosis, test results ED Critical Care Critical Care Yes Time spent > 164 min Vital system(s) involved: Respiratory Failure, Renal Failure I was present at bedside for Coordinating pt's care, Interpreting EKGs/Strips , Reviewing lab results, Reviewing old records, Discussing pt condition, Ventilator management, Examining radiographs Comments discussed with and and [facility] and [facility] - was able to take pt in ed at 1137
--- NOTE | 2017-10-16 12:01 | RADIOLOGY REPORT PS360 ---
CHEST-PORTABLE 11:22 AM Ordering Physician: Porsha Chaidez MD Patient Age: 42 years: Male HISTORY: pul edema. New NG tube placement. ET tube reposition recheck TECHNIQUE: AP portable supine chest with GRiD 11:22 AM COMPARISON :10:23 AM CXR FINDINGS, Endotracheal tube still is quite high it is been advanced roughly 2 cm with tip still 10 cm above abdulkadir((previously was 12 cm above abdulkadir).. Findings were discussed with Dr. Chaidez in ER.. He will again advance the ET tube prior to transfer. NG tube is now in place and passes through the GE junction into the stomach. Left subclavian central line remains and satisfactory position with tip at SVC beyond junction with brachiocephalic vein. Diffuse bilateral central infiltrates are again noted with associated air bronchograms centrally. Perihilar central infiltrate seen bilaterally but slightly more evident on the left than right.. There may be some slight improvement and slight clearing of the diffuse infiltrates particularly at the periphery left lung. The wrist Suggestion increasing density which may reflect reflecting pleural fluid overlying the right apex on this rightward rotated chest. This will require follow-up No pneumothorax. No significant pleural effusions at the lung bases evident. Borderline cardiomegaly. This generous with the superior mediastinum again noted on but I believe accentuated due to rightward rotation on this CXR.. This Will warrant follow-up as well. =====IMPRESSION ET tube only slightly advanced but remains 10 cm above the Abdulkadir and should be advanced 6 cm further.. Findings discussed with ER physician NG tube satisfactory position. Diffuse bilateral central infiltrates. Most likely pulmonary edema (although bilateral alveolar pneumonia could yield similar pattern ) Perhaps incremental improvement. Slight increased density overlying right lung apex & generous width of the superior mediastinum to the right on this pCXR-likely accentuated by the rightward rotation on this study. But will warrant follow-up .
[2017-10-16 12:15] VITALS: BP 139/87
== END 2017-10-16 12:15 | disposition short-term general hospital (02) ==
LOC: ER 09:18
PROVIDERS: Emergency Medicine
PROC: 0BH17EZ Insertion of Endotracheal Airway into Trachea, Via Natural or Artificial Opening (ICD-10-PCS; principal; 2017-10-16)
PROC: 05H633Z Insertion of Infusion Device into Left Subclavian Vein, Percutaneous Approach (ICD-10-PCS; principal; 2017-10-16)
PROC: 5A1935Z Respiratory Ventilation, Less than 24 Consecutive Hours (ICD-10-PCS; principal; 2017-10-16)
DX: J80 Acute respiratory distress syndrome (principal); N18.6 End stage renal disease; Z99.2 Dependence on renal dialysis; J18.0 Bronchopneumonia, unspecified organism; I10 Essential (primary) hypertension
CPT/HCPCS: C1751; J1335; J2704